=== PATIENT | female | born 1990 | race Caucasian/White ===

== ENCOUNTER 2018-07-20 19:11 | Emergency (ER) | payer SELFPAY ==
[~2018-07-20] VITALS: Ht 175.3 cm; Wt 109.1 kg
[2018-07-20 19:22] VITALS: Ht 175.3 cm; Wt 109.1 kg
[2018-07-20 19:48] LABS: BASOPHILS 0.3 % (0-2); EOSINOPHILS 0.6 % (0-7); HEMATOCRIT 39.6 % (36.0-48.0); HEMOGLOBIN 13.4 g/dL (12-16); IMMATURE GRANULOCYTES 0.4 % (0-5); LYMPHOCYTES 20.6 % (15-50); MCH 32.8 pg (26.0-34.0); MCHC 33.8 g/dL (31.0-37.0); MCV 97.1 fL (80.0-100.0); MEAN PLATELET VOLUME 10.3 fL (7.4-10.4); MONOCYTES 7.6 % (2-11); NEUTROPHILS 70.5 % (40-80); PLATELET COUNT 269 10x3/uL (130-400); RBC 4.08 10x6/uL (4.00-5.40); RDW 12.9 % (11.5-14.5); WBC 11.8 10x3/uL (4.8-10.8)
[2018-07-20 19:50] LABS: HCG URINE NEGATIVE (NEGATIVE)
[2018-07-20 19:53] LABS: APPEARANCE CLEAR (CLEAR); COLOR DK YELLOW (YELLOW); NITRITE NEGATIVE (NEGATIVE); PROTEIN 1+ mg/dL (NEGATIVE)
[2018-07-20 19:54] LABS: BACTERIA MODERATE /hpf (NONE SEEN); BILIRUBIN NEGATIVE (NEGATIVE); GLUCOSE NEGATIVE (NEGATIVE); KETONE NEGATIVE (NEGATIVE); RED CELLS - URINE RARE /hpf (0-5); UROBILINOGEN NORMAL (NORMAL); WHITE CELLS - URINE 0-5 /hpf (0-5)
[2018-07-20 20:10] LABS: ALBUMIN 3.3 g/dL (3.4-5.0); ALKALINE PHOSPHATASE 157 U/L (46-116); ALT (SGPT) 268 U/L (10-68); BILIRUBIN - TOTAL 0.35 mg/dL (0.2-1.3); CALC OSMOLALITY 276 mosm/kg (275-300); CARBON DIOXIDE 27.8 mmol/L (21.0-32.0); CHLORIDE - SERUM 102 mmol/L (98-107); CREATININE - SERUM 0.6 mg/dL (0.6-1.3); GLUCOSE 89 mg/dL (74-106); POTASSIUM - SERUM 3.9 mmol/L (3.5-5.1); PROTEIN - SERUM 7.5 g/dL (6.4-8.2); SODIUM 140 mmol/L (136-145); UREA NITROGEN 10 mg/dL (7-18); eGFR NON AFRICAN AMERICAN > 90 mL/min (90-120)
[2018-07-20] MEDS ORDERED: FLAGYL500 MG PO (20:49)
[2018-07-20] MEDS ORDERED: MACROBID100 MG PO (20:49)
[2018-07-20 21:07] VITALS: BP 110/62
== END 2018-07-20 21:00 | disposition home or self-care (01) ==
LOC: D.ER 19:11
PROVIDERS: Family Medicine
DX: N39.0 Urinary tract infection, site not specified (principal); N76.0 Acute vaginitis; B96.89 Other specified bacterial agents as the cause of diseases classified elsewhere; R79.89 Other specified abnormal findings of blood chemistry; R10.2 Pelvic and perineal pain